=== PATIENT | female | born 1965 | race American Indian/Alaskan Native ===

== ENCOUNTER 2020-12-25 08:00 | Outpatient (CLI) | payer OTHER ==
[~2020-12-25 08:00] MED LIST: AMILORIDE HCL5 MG; HYZAAR 100-121 UDTAB; [UNRECOGNIZED DRUG - OTHER]
== END 2020-12-25 08:30 | disposition home or self-care (01) ==
LOC: PPH VACUNA 08:00
DX: Z23 Encounter for immunization (principal)

== ENCOUNTER 2021-01-15 08:00 | Outpatient (CLI) | payer OTHER | END 2021-01-15 08:30 | disposition home or self-care (01) | LOC: PPH VACUNA 08:00 | DX: Z23 Encounter for immunization (principal) ==

== ENCOUNTER 2021-05-23 08:00 | Outpatient (CLI) | payer OTHER | END 2021-05-23 08:30 | disposition home or self-care (01) | LOC: PPH VACUNA 08:00 | PROVIDERS: ATTEND Emergency Medicine Pediatric Emergency Medicine | DX: Z23 Encounter for immunization (principal) ==

== ENCOUNTER 2022-03-06 14:15 | Outpatient (CLI) | payer OTHER | END 2022-03-06 14:25 | disposition home or self-care (01) | LOC: PPH VACUNA 14:15 | PROVIDERS: ATTEND Emergency Medicine Pediatric Emergency Medicine | DX: Z23 Encounter for immunization (principal) ==